=== PATIENT | male | born 1955 | race Caucasian/White ===

== ENCOUNTER → 2023-12-25 14:37 | Outpatient (REF) | payer BC, SELFPAY | LOC: MRI 3T 14:37 | PROVIDERS: ATTENDING PHYSICIAN Surgery; FAMILY PHYSICIAN Internal Medicine | DX: R97.20 Elevated prostate specific antigen [PSA] (principal) | CPT/HCPCS: 72197; A9575 ==

== ENCOUNTER → 2025-02-04 10:13 | Outpatient (REF) | payer BC, SELFPAY | LOC: HWRCS 10:13 | PROVIDERS: ATTENDING PHYSICIAN Internal Medicine Cardiovascular Disease; FAMILY PHYSICIAN Internal Medicine | DX: R00.0 Tachycardia, unspecified (principal) | CPT/HCPCS: 93306 ==